=== PATIENT | female | born 1980 | race Hispanic/Latino ===

== ENCOUNTER 2017-07-13 07:37 | Emergency (ER) | payer MEDICAID, SELFPAY ==
--- NOTE | 2017-07-13 09:12 | RAD ---
LEFT ANKLE 3 VIEWS: Date: 07/13/17 HISTORY: Fall. Left ankle injury. FINDINGS: Ankle mortise is intact. Minimal osteoarthritic changes. Pes planus on the lateral view. No acute fra cture, dislocation, or aggressive osseous erosion. Secondary ossification center lies immediately inf erior to the calcaneal cuboid joint on the lateral view. IMPRESSION: No acute osseous abnormalities are demonstrated. POS: MIGUEL ANGEL
== END 2017-07-13 08:25 | disposition home or self-care (01) ==
LOC: ERS 07:37
DX: Z87.891 Personal history of nicotine dependence; W17.89XA Other fall from one level to another, initial encounter; Y92.009 Unspecified place in unspecified non-institutional (private) residence as the place of occurrence of the external cause; L02.416 Cutaneous abscess of left lower limb; S93.402A Sprain of unspecified ligament of left ankle, initial encounter

== ENCOUNTER 2017-07-15 22:07 | Emergency (ER) | payer MEDICAID, SELFPAY ==
--- NOTE | 2017-07-16 00:05 | RAD ---
LEFT FOOT RADIOGRAPH SERIES THREE VIEWS: INDICATIONS: Pain. FINDINGS: The Lisfranc joint is intact. No fracture or dislocation. No radiopaque foreign body. IMPRESSION: No acute osseous abnormality, left foot. POS: C
== END 2017-07-16 00:10 | disposition home or self-care (01) ==
LOC: ERS 22:07
DX: S93.602A Unspecified sprain of left foot, initial encounter (principal); X58.XXXA Exposure to other specified factors, initial encounter

== ENCOUNTER 2018-01-09 17:56 | Emergency (ER) | payer MEDICAID ==
[2018-01-09] MEDS ORDERED: Ketorolac Tromethamine 60 MG/2 ML VIAL ONE (18:47)
[2018-01-09] MEDS ORDERED: Diazepam 5 MG TAB ONE (18:47)
[2018-01-09] MEDS ORDERED: HYDROcodone/Acetaminophen 10/325 mg Tablet ONE (18:47)
== END 2018-01-09 19:20 | disposition home or self-care (01) ==
LOC: ERS 17:56
DX: M54.6 Pain in thoracic spine (principal); M54.5 Low back pain; F17.210 Nicotine dependence, cigarettes, uncomplicated
CPT/HCPCS: 96372; J1885